=== PATIENT | male | born 1960 | race Caucasian/White ===

== ENCOUNTER 2024-02-09 19:05 | Emergency (ER) | payer OTHER ==
[~2024-02-09] VITALS: Ht 177.8 cm; Wt 106.9 kg
[2024-02-09 19:14] VITALS: TEMP 97
[2024-02-09 20:09] VITALS: BP 142/83; PULSE 83; RESP 16; O2SAT 98
== END 2024-02-09 20:49 | disposition left against medical advice (07) ==
LOC: ER 19:05
DX: T23.051A Burn of unspecified degree of right palm, initial encounter (principal); Z53.21 Procedure and treatment not carried out due to patient leaving prior to being seen by health care provider; X08.8XXA Exposure to other specified smoke, fire and flames, initial encounter; Y93.89 Activity, other specified; Y92.89 Other specified places as the place of occurrence of the external cause; Y99.8 Other external cause status